=== PATIENT | female | born 1935 | race Caucasian/White ===

== ENCOUNTER 2018-05-27 17:01 | Inpatient (IN) ==
[2018-05-27] MEDS ORDERED: ONDANSETRON 4 MG/2 ML VIAL IV STA (19:17)
[2018-05-27] MEDS ORDERED: PANTOPRAZOLE 40 MG VIAL IV STA (19:17)
[2018-05-27 19:37] LABS: Basophils % 0.7 % (0.0-0.8); Eosinophils % 0.5 % (0.00-10.9); Hematocrit 40.9 VOL% (35.7-47.0); Hemoglobin 13.8 GM/DL (12.0-16.0); Immature Granulocytes Absolute 0.06 #; Lymphocytes # 0.8 10*3/uL (1.4-4.0); Lymphocytes % 12.4 % (21.3-54.2); Mean Corpuscular HGB Conc 33.7 GM/DL (32-36); Mean Corpuscular Hemoglobin 32 PG (27-34); Mean Corpuscular Volume 93.8 FL (87-102); Mean Platelet Volume 10.2 FL (9.6-12.0); Monocytes # 0.7 10*3/uL (0.11-0.8); Monocytes % 10.9 % (1.7-12.7); Neutrophils # 4.5 10*3/uL (1.4-7.4); Neutrophils % 74.5 % (38.7-73.9); Platelet Count 174 T/CUMM (130-400); Red Blood Count 4.36 MC/CUMM (3.8-5.5); Red Cell Distribution Width 13.2 % (9.3-17.3); White Blood Count 6.1 T/CUMM (4-12)
[2018-05-27 20:10] LABS: Albumin 3.5 G/DL (3.4-5.0); Bilirubin,Total 0.8 MG/DL (0.2-1.0); Calcium 9.2 MG/DL (8.5-10.1); Osmolality,Calculated 268.8 MOS/KG (273-304); Total Protein 7.4 G/DL (6.4-8.3)
[2018-05-27 20:11] LABS: Band Neutrophils 29 % (0-10); Eosinophils 1 % (0-10); Lymphocytes 13 % (20-55); Metamyelocytes 2 %; Segmented Neutrophils 47 % (50-85); Total Cells Counted 100
[2018-05-27 20:12] LABS: Hypochromasia Slight; Ovalocytes 1+; Platelet Estimate Normal
[2018-05-27 21:06] LABS: Apearance,Urine CLEAR (Clear); Bacteria,Urine Occasional /HPF (Few); Bilirubin,Urine Negative (Negative); Blood, Urine Negative (Negative); Glucose,Urine (UA) Negative (Negative); Granular Casts,Urine 1 /LPF (0-1); Hyaline Casts,Urine 22 /LPF (0-3); Ketones,Urine Negative (Negative); Mucus,Urine Occasional /LPF (Occasional); Nitrite,Urine Negative (Negative); Protein,Urine 30 MG/DL; RBC,Urine 2 /HPF (0-4); Urine Color Yellow (Yellow); Urine Specific Gravity 1.019 (1.001-1.035); Urine Urobilinogen < 2.0 EU/DL (0.2-1.0)
[2018-05-27] MEDS ORDERED: ENOXAPARIN 100 MG/ML SYRINGE SUBCUT STA (21:55)
[2018-05-27] MEDS ORDERED: ENOXAPARIN 60 MG/0.6 ML SYRINGE ONE (22:03)
[2018-05-27 22:30] LABS: Lactic Acid 1.2 MMOL/L (0.4-2.0)
[2018-05-27 22:32] LABS: Troponin I 0.103 NG/ML (0.00-0.045)
[2018-05-28] MEDS ORDERED: ONDANSETRON 4 MG/2 ML VIAL IV PRN (01:16)
[2018-05-28] MEDS ORDERED: LOPERAMIDE 2 MG CAPSULE PO SCH (01:16)
[2018-05-28] MEDS ORDERED: ACETAMINOPHEN 325 MG TABLET PO PRN (01:16)
[2018-05-28] MEDS ORDERED: MORPHINE 4 MG/1 ML VIAL IV PRN (01:16)
[2018-05-28] MEDS: metroNIDAZOLE INJ 500 MG in PREMIX 1 EACH IV SCH ×3 (01:54→17:23)
[2018-05-28] MEDS: SODIUM CHLORIDE 0.9% 1,000 ML IV SCH ×3 (01:55→17:23)
[2018-05-28 02:07] LABS: Troponin I 0.092 NG/ML (0.00-0.045)
[2018-05-28 05:09] LABS: Basophils % 0.8 % (0.0-0.8); Eosinophils # 0.1 10*3/uL (0.0-0.87); Eosinophils % 0.9 % (0.00-10.9); Hemoglobin 12.8 GM/DL (12.0-16.0); Immature Granulocytes % 0.9 %; Immature Granulocytes Absolute 0.05 #; Lymphocytes # 0.9 10*3/uL (1.4-4.0); Lymphocytes % 17.6 % (21.3-54.2); Mean Corpuscular HGB Conc 34.6 GM/DL (32-36); Mean Corpuscular Hemoglobin 32 PG (27-34); Mean Corpuscular Volume 91.4 FL (87-102); Mean Platelet Volume 9.8 FL (9.6-12.0); Monocytes # 0.8 10*3/uL (0.11-0.8); Monocytes % 14.4 % (1.7-12.7); Neutrophils # 3.5 10*3/uL (1.4-7.4); Neutrophils % 65.4 % (38.7-73.9); Platelet Count 158 T/CUMM (130-400); Red Blood Count 4.05 MC/CUMM (3.8-5.5); Red Cell Distribution Width 13.2 % (9.3-17.3); White Blood Count 5.3 T/CUMM (4-12)
[2018-05-28 05:44] LABS: Albumin 2.9 G/DL (3.4-5.0); Bilirubin,Total 1.2 MG/DL (0.2-1.0); Calcium 8.7 MG/DL (8.5-10.1); Osmolality,Calculated 272.2 MOS/KG (273-304); Potassium 3.6 MMOL/L (3.5-5.1); Risk Ratio 2.57; Total Protein 6.5 G/DL (6.4-8.3); VLDL CHOLESTEROL 25.6 MG/DL
[2018-05-28 06:07] LABS: Band Neutrophils 17 % (0-10); Lymphocytes 19 % (20-55); Metamyelocytes 3 %; Segmented Neutrophils 47 % (50-85); Total Cells Counted 100
[2018-05-28 06:08] LABS: Anisocytosis 1+; Macrocytosis 1+; Ovalocytes 1+; Platelet Estimate Adequate
[2018-05-28] MEDS ORDERED: [UNRECOGNIZED DRUG - OTHER] PO SCH (09:00)
[2018-05-28] MEDS ORDERED: QUINIDINE PO SCH (09:00)
[2018-05-28] MEDS ORDERED: NON-FORMULARY MEDICATION (Omeprazole [Prilosec] 20 MG) PO SCH (09:00)
[2018-05-28] MEDS: SELENIUM 200 MCG TABLET PO SCH ×2 (09:30→20:29)
[2018-05-28] MEDS: CARVEDILOL 3.125 MG TABLET PO SCH ×2 (09:30→17:23)
[2018-05-28] MEDS: MULTIVITAMIN (CENTRUM) TABLET PO SCH (09:30)
[2018-05-28] MEDS: PANTOPRAZOLE 40 MG VIAL IV SCH (09:31)
[2018-05-28] MEDS: ENOXAPARIN 40 MG/0.4 ML SYRINGE SUBCUT SCH (09:31)
[2018-05-28] MEDS: ASPIRIN EC 325 MG TABLET PO SCH (09:31)
[2018-05-28] MEDS: MEMANTINE 10 MG TABLET PO SCH ×2 (09:31→20:30)
[2018-05-28] MEDS: DOCUSATE SODIUM 100 MG CAPSULE PO SCH ×2 (09:31→20:30)
[2018-05-28] MEDS ORDERED: POTASSIUM CHLORIDE 20 MEQ PACK PO ONE (18:11)
[2018-05-28] MEDS: DONEPEZIL 10 MG TABLET PO SCH (20:29)
[2018-05-28] MEDS: PRAVASTATIN 40 MG TABLET PO SCH (20:30)
[2018-05-28] MEDS: NUEDEXTA 20/10 PO SCH (20:30)
[2018-05-29] MEDS: metroNIDAZOLE INJ 500 MG in PREMIX 1 EACH IV SCH ×3 (01:22→17:43)
[2018-05-29] MEDS: SODIUM CHLORIDE 0.9% 1,000 ML IV SCH ×3 (01:23→20:32)
[2018-05-29 04:01] LABS: Basophils % 0.7 % (0.0-0.8); Eosinophils # 0.1 10*3/uL (0.0-0.87); Eosinophils % 1.6 % (0.00-10.9); Hemoglobin 11.1 GM/DL (12.0-16.0); Immature Granulocytes % 1.4 %; Immature Granulocytes Absolute 0.08 #; Lymphocytes # 0.9 10*3/uL (1.4-4.0); Lymphocytes % 16.5 % (21.3-54.2); Mean Corpuscular HGB Conc 33.6 GM/DL (32-36); Mean Corpuscular Hemoglobin 31 PG (27-34); Mean Corpuscular Volume 92.2 FL (87-102); Mean Platelet Volume 10.2 FL (9.6-12.0); Monocytes # 0.7 10*3/uL (0.11-0.8); Monocytes % 12.2 % (1.7-12.7); Neutrophils # 3.8 10*3/uL (1.4-7.4); Neutrophils % 67.6 % (38.7-73.9); Platelet Count 164 T/CUMM (130-400); Red Blood Count 3.58 MC/CUMM (3.8-5.5); Red Cell Distribution Width 13.2 % (9.3-17.3); White Blood Count 5.6 T/CUMM (4-12)
[2018-05-29 04:21] LABS: Calcium 8.2 MG/DL (8.5-10.1); Osmolality,Calculated 280.4 MOS/KG (273-304); Potassium 3.3 MMOL/L (3.5-5.1)
[2018-05-29 04:25] LABS: Band Neutrophils 10 % (0-10); Eosinophils 2 % (0-10); Lymphocytes 11 % (20-55); Segmented Neutrophils 73 % (50-85); Total Cells Counted 100
[2018-05-29 04:27] LABS: Platelet Estimate Normal
[2018-05-29 04:28] LABS: Ovalocytes 1+
[2018-05-29] MEDS: POTASSIUM CHLORIDE 20 MEQ TABLET PO PRN ×3 (04:28→09:33)
[2018-05-29] MEDS: SELENIUM 200 MCG TABLET PO SCH ×2 (09:33→20:26)
[2018-05-29] MEDS: DOCUSATE SODIUM 100 MG CAPSULE PO SCH ×2 (09:33→20:26)
[2018-05-29] MEDS: CARVEDILOL 3.125 MG TABLET PO SCH ×2 (09:33→17:43)
[2018-05-29] MEDS: PANTOPRAZOLE 40 MG VIAL IV SCH (09:33)
[2018-05-29] MEDS: MEMANTINE 10 MG TABLET PO SCH ×2 (09:33→20:26)
[2018-05-29] MEDS: ASPIRIN EC 325 MG TABLET PO SCH (09:33)
[2018-05-29] MEDS: MULTIVITAMIN (CENTRUM) TABLET PO SCH (09:33)
[2018-05-29] MEDS: ENOXAPARIN 40 MG/0.4 ML SYRINGE SUBCUT SCH (09:34)
[2018-05-29] MEDS: NUEDEXTA 20/10 PO SCH ×2 (09:36→20:25)
[2018-05-29] MEDS ORDERED: LOPERAMIDE 2 MG CAPSULE PO PRN (10:25)
[2018-05-29] MEDS: CHOLESTYRAMINE 4 GM PACK PO SCH ×2 (11:17→20:25)
[2018-05-29] MEDS: LACTOBACILLUS ACIDOPHILUS/BULGARICUS CAPLET PO SCH (11:17)
[2018-05-29] MEDS: DESITIN 4OZ/NYSTATIN 15 GRAM MIXTURE PASTE TOP SCH (20:26)
[2018-05-29] MEDS: DONEPEZIL 10 MG TABLET PO SCH (20:26)
[2018-05-29] MEDS: PRAVASTATIN 40 MG TABLET PO SCH (20:26)
[2018-05-30] MEDS: metroNIDAZOLE INJ 500 MG in PREMIX 1 EACH IV SCH ×3 (02:05→16:43)
[2018-05-30] MEDS: SODIUM CHLORIDE 0.9% 1,000 ML IV SCH ×5 (03:03→17:28)
[2018-05-30 05:37] LABS: Osmolality,Calculated 272.5 MOS/KG (273-304)
[2018-05-30] MEDS: NUEDEXTA 20/10 PO SCH ×2 (08:38→21:16)
[2018-05-30] MEDS: PANTOPRAZOLE 40 MG VIAL IV SCH (08:39)
[2018-05-30] MEDS: ASPIRIN EC 325 MG TABLET PO SCH (08:40)
[2018-05-30] MEDS: CARVEDILOL 3.125 MG TABLET PO SCH ×2 (08:40→16:43)
[2018-05-30] MEDS: CHOLESTYRAMINE 4 GM PACK PO SCH (08:40)
[2018-05-30] MEDS: ENOXAPARIN 40 MG/0.4 ML SYRINGE SUBCUT SCH (08:40)
[2018-05-30] MEDS: SELENIUM 200 MCG TABLET PO SCH ×2 (08:40→21:17)
[2018-05-30] MEDS: DOCUSATE SODIUM 100 MG CAPSULE PO SCH ×2 (08:40→21:18)
[2018-05-30] MEDS: MEMANTINE 10 MG TABLET PO SCH ×2 (08:40→21:18)
[2018-05-30] MEDS: LACTOBACILLUS ACIDOPHILUS/BULGARICUS CAPLET PO SCH (08:40)
[2018-05-30] MEDS: MULTIVITAMIN (CENTRUM) TABLET PO SCH (08:40)
[2018-05-30] MEDS: DESITIN 4OZ/NYSTATIN 15 GRAM MIXTURE PASTE TOP SCH ×2 (09:39→21:21)
[2018-05-30] MEDS: POTASSIUM CHLORIDE 20 MEQ/15 ML UDCUP PO SCH (16:43)
[2018-05-30] MEDS: PRAVASTATIN 40 MG TABLET PO SCH (21:18)
[2018-05-30] MEDS: DONEPEZIL 10 MG TABLET PO SCH (21:18)
[2018-05-31] MEDS: metroNIDAZOLE INJ 500 MG in PREMIX 1 EACH IV SCH ×3 (01:10→17:14)
[2018-05-31] MEDS: SODIUM CHLORIDE 0.9% 1,000 ML IV SCH ×3 (03:05→19:39)
[2018-05-31 03:29] LABS: Basophils # 0.1 10*3/uL (0.0-0.2); Basophils % 0.8 % (0.0-0.8); Eosinophils # 0.1 10*3/uL (0.0-0.87); Eosinophils % 1.6 % (0.00-10.9); Hematocrit 34.7 VOL% (35.7-47.0); Hemoglobin 11.9 GM/DL (12.0-16.0); Immature Granulocytes % 2.2 %; Immature Granulocytes Absolute 0.17 #; Lymphocytes # 1.3 10*3/uL (1.4-4.0); Lymphocytes % 17.5 % (21.3-54.2); Mean Corpuscular HGB Conc 34.3 GM/DL (32-36); Mean Corpuscular Hemoglobin 31 PG (27-34); Mean Corpuscular Volume 89.9 FL (87-102); Mean Platelet Volume 10.1 FL (9.6-12.0); Monocytes % 12.5 % (1.7-12.7); Neutrophils % 65.4 % (38.7-73.9); Platelet Count 193 T/CUMM (130-400); Red Blood Count 3.86 MC/CUMM (3.8-5.5); Red Cell Distribution Width 13.2 % (9.3-17.3); White Blood Count 7.7 T/CUMM (4-12)
[2018-05-31 03:40] LABS: Calcium 8.5 MG/DL (8.5-10.1); Osmolality,Calculated 274.5 MOS/KG (273-304); Potassium 3.2 MMOL/L (3.5-5.1)
[2018-05-31 04:31] LABS: Calcium 8.5 MG/DL (8.5-10.1); Osmolality,Calculated 272.7 MOS/KG (273-304); Potassium 3.2 MMOL/L (3.5-5.1)
[2018-05-31] MEDS: POTASSIUM CHLORIDE 20 MEQ TABLET PO PRN ×4 (07:11→13:50)
[2018-05-31] MEDS: ASPIRIN EC 325 MG TABLET PO SCH (09:26)
[2018-05-31] MEDS: CARVEDILOL 3.125 MG TABLET PO SCH ×2 (09:26→17:14)
[2018-05-31] MEDS: LACTOBACILLUS ACIDOPHILUS/BULGARICUS CAPLET PO SCH (09:27)
[2018-05-31] MEDS: DOCUSATE SODIUM 100 MG CAPSULE PO SCH ×2 (09:27→20:26)
[2018-05-31] MEDS: MULTIVITAMIN (CENTRUM) TABLET PO SCH (09:27)
[2018-05-31] MEDS: NUEDEXTA 20/10 PO SCH ×2 (09:28→20:27)
[2018-05-31] MEDS: MEMANTINE 10 MG TABLET PO SCH ×2 (09:28→20:27)
[2018-05-31] MEDS: ENOXAPARIN 40 MG/0.4 ML SYRINGE SUBCUT SCH (09:28)
[2018-05-31] MEDS: POTASSIUM CHLORIDE 20 MEQ/15 ML UDCUP PO SCH (09:29)
[2018-05-31] MEDS: PANTOPRAZOLE 40 MG VIAL IV SCH (09:29)
[2018-05-31] MEDS: DESITIN 4OZ/NYSTATIN 15 GRAM MIXTURE PASTE TOP SCH ×2 (09:30→20:28)
[2018-05-31] MEDS: SELENIUM 200 MCG TABLET PO SCH ×2 (09:30→20:27)
[2018-05-31] MEDS: PRAVASTATIN 40 MG TABLET PO SCH (20:27)
[2018-05-31] MEDS: DONEPEZIL 10 MG TABLET PO SCH (20:27)
[2018-06-01] MEDS: metroNIDAZOLE INJ 500 MG in PREMIX 1 EACH IV SCH ×3 (01:11→17:28)
[2018-06-01] MEDS: SODIUM CHLORIDE 0.9% 1,000 ML IV SCH ×3 (01:14→18:43)
[2018-06-01 06:39] LABS: Calcium 9.2 MG/DL (8.5-10.1); Osmolality,Calculated 280.3 MOS/KG (273-304); Potassium 4.6 MMOL/L (3.5-5.1)
[2018-06-01 06:42] LABS: Alanine Aminotransferase 19 U/L (13-56); Albumin 2.6 G/DL (3.4-5.0); Alkaline Phosphatase 61 U/L (45-117); Aspartate Amino Transferase 31 U/L (0-37); Bilirubin,Direct < 0.100 MG/DL (0.0-0.20); Bilirubin,Indirect 0.3 MG/DL (0.0-1.0); Total Protein 5.9 G/DL (6.4-8.3)
[2018-06-01] MEDS: POTASSIUM CHLORIDE 20 MEQ/15 ML UDCUP PO SCH (09:19)
[2018-06-01] MEDS: PANTOPRAZOLE 40 MG VIAL IV SCH (09:20)
[2018-06-01] MEDS: NUEDEXTA 20/10 PO SCH ×2 (09:20→20:26)
[2018-06-01] MEDS: ENOXAPARIN 40 MG/0.4 ML SYRINGE SUBCUT SCH (09:21)
[2018-06-01] MEDS: SELENIUM 200 MCG TABLET PO SCH ×2 (09:21→20:26)
[2018-06-01] MEDS: DOCUSATE SODIUM 100 MG CAPSULE PO SCH ×2 (09:22→20:24)
[2018-06-01] MEDS: DESITIN 4OZ/NYSTATIN 15 GRAM MIXTURE PASTE TOP SCH ×2 (09:22→20:26)
[2018-06-01] MEDS: ASPIRIN EC 325 MG TABLET PO SCH (09:22)
[2018-06-01] MEDS: MEMANTINE 10 MG TABLET PO SCH ×2 (09:22→20:26)
[2018-06-01] MEDS: CARVEDILOL 3.125 MG TABLET PO SCH ×2 (09:22→17:28)
[2018-06-01] MEDS: MULTIVITAMIN (CENTRUM) TABLET PO SCH (09:22)
[2018-06-01] MEDS: LACTOBACILLUS ACIDOPHILUS/BULGARICUS CAPLET PO SCH (09:22)
[2018-06-01] MEDS: PRAVASTATIN 40 MG TABLET PO SCH (20:26)
[2018-06-01] MEDS: DONEPEZIL 10 MG TABLET PO SCH (20:26)
[2018-06-02] MEDS: metroNIDAZOLE INJ 500 MG in PREMIX 1 EACH IV SCH ×2 (00:58→10:48)
[2018-06-02] MEDS: SODIUM CHLORIDE 0.9% 1,000 ML IV SCH (04:12)
[2018-06-02 08:02] VITALS: BP 115/69
[2018-06-02 08:03] LABS: Risk Ratio 2.07; VLDL CHOLESTEROL 19.4 MG/DL
[2018-06-02] MEDS: SELENIUM 200 MCG TABLET PO SCH (08:51)
[2018-06-02] MEDS: MULTIVITAMIN (CENTRUM) TABLET PO SCH (08:52)
[2018-06-02] MEDS: DOCUSATE SODIUM 100 MG CAPSULE PO SCH (08:52)
[2018-06-02] MEDS: CARVEDILOL 3.125 MG TABLET PO SCH (08:52)
[2018-06-02] MEDS: ENOXAPARIN 40 MG/0.4 ML SYRINGE SUBCUT SCH (08:52)
[2018-06-02] MEDS: ASPIRIN EC 325 MG TABLET PO SCH (08:52)
[2018-06-02] MEDS: PANTOPRAZOLE 40 MG VIAL IV SCH (08:52)
[2018-06-02] MEDS: LACTOBACILLUS ACIDOPHILUS/BULGARICUS CAPLET PO SCH (08:52)
[2018-06-02] MEDS: POTASSIUM CHLORIDE 20 MEQ/15 ML UDCUP PO SCH (08:53)
[2018-06-02] MEDS: NUEDEXTA 20/10 PO SCH (08:53)
[2018-06-02] MEDS: MEMANTINE 10 MG TABLET PO SCH (08:54)
[2018-06-02] MEDS: DESITIN 4OZ/NYSTATIN 15 GRAM MIXTURE PASTE TOP SCH (08:55)
== END 2018-06-02 10:51 | disposition home health service (06) | DRG 439 ==
LOC: N.ED 17:01 → N.EDINP 22:15 → N.3E 05-28 00:16
PROVIDERS: ADMIT Family Medicine; ATTEND Family Medicine

== ENCOUNTER 2019-01-09 07:33 | Inpatient (IN) ==
[2019-01-09] MEDS ORDERED: MAGNESIUM HYDROXIDE SUSP 30 ML UDCUP PO PRN (08:45)
[2019-01-09] MEDS ORDERED: DEXTROSE 5% NACL 0.45% 1,000 ML IV SCH (09:00)
[2019-01-09 09:42] LABS: Basophils # 0.1 10*3/uL (0.0-0.2); Basophils % 0.7 % (0.0-0.8); Eosinophils # 0.1 10*3/uL (0.0-0.87); Eosinophils % 1.1 % (0.00-10.9); Hematocrit 38.6 VOL% (35.7-47.0); Hemoglobin 12.2 GM/DL (12.0-16.0); Immature Granulocytes % 1.2 %; Immature Granulocytes Absolute 0.15 #; Lymphocytes # 1.5 10*3/uL (1.4-4.0); Lymphocytes % 12.4 % (21.3-54.2); Mean Corpuscular HGB Conc 31.6 GM/DL (32-36); Mean Corpuscular Volume 93.5 FL (87-102); Monocytes % 6.3 % (1.7-12.7); Neutrophils % 78.3 % (38.7-73.9); Platelet Count 250 T/CUMM (130-400); Red Blood Count 4.13 MC/CUMM (3.8-5.5); White Blood Count 12.2 T/CUMM (4-12)
[2019-01-09 10:00] LABS: Albumin 3.8 G/DL (3.4-5.0); Bilirubin,Total 0.6 MG/DL (0.2-1.0); Calcium 9.1 MG/DL (8.5-10.1); Osmolality,Calculated 279.4 MOS/KG (273-304); Total Protein 7.1 G/DL (6.4-8.3)
[2019-01-09] MEDS ORDERED: ceFAZolin 1,000 MG VIAL ONE (13:49)
[2019-01-09] MEDS ORDERED: SEVOFLURANE 1 UNIT/15 MINUTE INH ONE (14:21)
[2019-01-09] MEDS ORDERED: fentaNYL 100 MCG/2 ML VIAL ONE (14:21)
[2019-01-09] MEDS ORDERED: PROPOFOL 200 MG/20 ML VIAL IV ONE (14:21)
[2019-01-09] MEDS ORDERED: PHENYLEPHRINE 1 MG/10 ML SYRINGE IV ONE (14:22)
[2019-01-09] MEDS ORDERED: SUCCINYLCHOLINE 200 MG/10 ML VIAL ONE (14:22)
[2019-01-09] MEDS ORDERED: ONDANSETRON 4 MG/2 ML VIAL ONE (14:22)
[2019-01-09] MEDS ORDERED: GLYCOPYRROLATE 0.4 MG/2 ML VIAL ONE (14:22)
[2019-01-09] MEDS ORDERED: ePHEDrine 50 MG/ML AMP ONE (14:22)
[2019-01-09 15:34] VITALS: BP 148/100
[2019-01-09] MEDS ORDERED: CARVEDILOL 3.125 MG TABLET PO STA (16:36)
[2019-01-09] MEDS ORDERED: ceFAZolin 1,000 MG in SYRINGE 1 EACH IV SCH (22:00)
== END 2019-01-09 17:59 | disposition home or self-care (01) | DRG 512 ==
LOC: N.ED 07:33 → N.EDINP 08:48 → N.3E 10:29
PROVIDERS: ADMIT Family Medicine; ATTEND Family Medicine